=== PATIENT | male | born 1965 | race Caucasian/White ===

== ENCOUNTER 2024-11-09 07:31 | Day surgery (SDC) | payer OTHER ==
[2024-11-08 15:30] LABS: BASOPHILS # (AUTO) 0.1 X10'3 (0-0.2); EOSINOPHILS # (AUTO) 0.2 X10'3 (0-0.9); EOSINOPHILS % (AUTO) 2.7 % (0-6); HEMATOCRIT 47.8 % (42.0-52.0); HEMOGLOBIN 16.3 g/dl (14.0-17.9); LYMPHOCYTES # (AUTO) 1.1 X10'3 (1.1-4.8); LYMPHOCYTES % (AUTO) 16.8 % (21-51); MEAN CORPUSCULAR HEMOGLOBIN 32.9 PG (27.0-31.0); MEAN CORPUSCULAR VOLUME 96.7 FL (78-98); MEAN PLATELET VOLUME 8.3 FL (7.4-10.4); MONOCYTES # (AUTO) 0.6 X10'3 (0-0.9); MONOCYTES % (AUTO) 9.5 % (2-12); NEUTROPHILS # (AUTO) 4.7 X10'3 (1.8-7.7); PLATELET COUNT 228 X10'3 (140-440); RED BLOOD COUNT 4.94 X10'6 (4.70-6.10); RED CELL DISTRIBUTION WIDTH 13.6 % (11.5-14.5); WHITE BLOOD COUNT 6.7 X10'3 (4.5-11.0)
[2024-11-08 15:47] LABS: ALBUMIN 3.9 G/DL (3.4-5.0); ANION GAP 7 (8-16); BLOOD UREA NITROGEN 12 MG/DL (7-18); BUN/CREATININE RATIO 13.6 (10.0-20.0); CALCIUM 8.9 MG/DL (8.5-10.1); CHLORIDE 106 MMOL/L (99-107); CREATININE 0.88 MG/DL (0.60-1.10); GLUCOSE 96 MG/DL (70-104); POTASSIUM 4.3 MMOL/L (3.5-5.1); SODIUM 141 MMOL/L (135-145); TOTAL CARBON DIOXIDE 27.8 MMOL/L (24-32); eGFR 88 ML/MIN
[2024-11-08 15:51] LABS: APTT 27 SECONDS (22-32); PROTHROMBIN TIME 10.1 SECONDS (9.0-12.0)
[2024-11-09] VITALS (10 sets, daily range): BP systolic 125–149; BP diastolic 64–99; PULSE 55–65; RESP 16; TEMP 97.5; O2SAT 91–96
[~2024-11-09] VITALS: Ht 180.3 cm; Wt 112.6 kg
[~2024-11-09 07:31] MED LIST: ACET-2319 PO; CLOP75TA34 PO; COR3.125T PO; ROSU40TA PO
[2024-11-09] MEDS ORDERED: ASPI81TA52 PO (08:27)
[2024-11-09] MEDS ORDERED: LIDOcaine 1% (10mg/ml) 2ml vial ONE ×2 (08:27→10:18)
[2024-11-09] MEDS ORDERED: ASCO100031 PO (08:27)
[2024-11-09] MEDS ORDERED: LOSA-415 PO (08:27)
[2024-11-09] MEDS ORDERED: midazolam 1 mg/ML 2ml injection ONE (08:28)
[2024-11-09] MEDS ORDERED: heparin 1,000unit/ml 10ml vial 10 ML ONE (08:28)
[2024-11-09] MEDS ORDERED: fentaNYL/PF 50MCG/1 ML 2ML syringe ONE (08:28)
[2024-11-09] MEDS ORDERED: iohexol 350 MG/ML 50ML vial IV ONE (08:28)
[2024-11-09] MEDS ORDERED: iohexol 350MG/ML 100ml bottle IV ONE (08:28)
[2024-11-09] MEDS ORDERED: verapamil 2.5 mg/ml inj IV ONE ×2 (08:28→10:18)
[2024-11-09] MEDS ORDERED: nitroGLYCERIN 500mcg/5mL D5W 0 ML IV ONE (08:29)
[2024-11-09] MEDS: diphenhydrAMINE 25mg capsule PO PRN (08:47)
[2024-11-09] MEDS: LORazepam 0.5 MG tablet PO PRN (08:47)
[2024-11-09] MEDS: normal saline 1,000 ML IV SCH (08:48)
[2024-11-09] MEDS ORDERED: nitroGLYCERIN 500mcg/5mL D5W 5 ML IV ONE ×2 (10:12→10:18)
[2024-11-09] MEDS ORDERED: normal saline 1000ml 1,000 ML IV ONE (12:20)
[2024-11-09] MEDS ORDERED: HYDROcodone/acetaminophen 10/325mg tab PO PRN (12:20)
[2024-11-09] MEDS ORDERED: HYDROcodone/acetaminophen 5mg/325mg tablet PO PRN (12:20)
[2024-11-09] MEDS ORDERED: SPIR25TA5 PO (12:35)
== END 2024-11-09 16:00 | disposition home or self-care (01) ==
LOC: SSTAY O 07:31
PROVIDERS: ATTEND Internal Medicine Cardiovascular Disease
DX: I25.10 Atherosclerotic heart disease of native coronary artery without angina pectoris (principal); E78.5 Hyperlipidemia, unspecified; I10 Essential (primary) hypertension; I27.20 Pulmonary hypertension, unspecified; Z95.5 Presence of coronary angioplasty implant and graft; Z79.01 Long term (current) use of anticoagulants; I36.1 Nonrheumatic tricuspid (valve) insufficiency; I47.20 Ventricular tachycardia, unspecified
CPT/HCPCS: 36415; 80048; 85025; 85610; 85730; 93005; 93458; 99156; 99157; J1644; J2003; J2250; J3010; J3490; J7030; Q0163; Q9967; 76937; 99152; 99153; A6258; A6402; C1725; C1894